=== PATIENT | male | born 1980 ===

== ENCOUNTER → 2022-12-12 12:31 | Outpatient (CLI) | payer OTHER, SELFPAY ==
--- NOTE | ~2022-12-12 | MR_ITS ---
MRI of the left ankle Clinical history: Pain Technique: Coronal proton-density and proton-density fat-sat images, axial proton-density and proton- density fat-sat images, and sagittal proton-density and proton-density fat-sat images were acquired. Findings: Syndesmotic ligaments are intact. Posterior talofibular ligament is intact. Anterior talofi bular ligament is somewhat thickened and hyperintense, with probable small chronic avulsion fracture at the tip of the lateral malleolus. Calcaneofibular ligament is also poorly delineated. Deltoid liga ment is intact. There is focal tendinosis of the distal tibial posterior tendon, which is thickened and hyperintense. There is minimal tenosynovitis of the proximal tibialis posterior tendon. There is mild tenosynoviti s of the peroneal tendon sheaths proximally. Anterior extensor tendons and Achilles tendon are intact . There is no osteochondral lesion of the talar dome. There is advanced degenerative change of the tars ometatarsal joints diffusely, with reactive marrow edema and some chondral cystic change. There is robert sceptibility artifact at the dorsal aspect of the region of the first TMT joint, which could indicate postoperative change. Visualized plantar fascia is intact. No soft tissue mass or fluid collection s een otherwise. Impression: Focal moderate tenosynovitis of the distal tibialis posterior tendon. Mild tenosynovitis of the tibialis posterior and peroneal tendon sheaths, as detailed above. 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 Correlate with any relevant history. Thinned hyperintense anterior talofibular ligament, with poor visualization of the calcaneofibular li gament, and suspected chronic small lateral malleolus avulsion fracture. Findings likely represent se quelae of remote lateral ankle injury. Reviewed, dictated and finalized at location . Impression: Focal moderate tenosynovitis of the distal tibialis posterior tendon. Mild tenosynovitis of the tibialis posterior and peroneal tendon sheaths, as de tailed above. 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 Correlate w ith any relevant history. Thinned hyperintense anterior talofibular ligament, with poor visualization of the calcaneofibular ligament, and suspected chronic small lateral malleolus avu lsion fracture. Findings likely represent sequelae of remote lateral ankle inju ry.
--- NOTE | ~2022-12-12 | MR_ITS ---
MRI of the right ankle Clinical history: Pain Technique: Coronal proton-density and proton-density fat-sat images, axial proton-density and proton- density fat-sat images, and sagittal proton-density and proton-density fat-sat images were acquired. Findings: Syndesmotic ligaments are intact. Anterior talofibular ligament is thickened with probable chronic avulsion fracture at the tip of the lateral malleolus. Calcaneofibular ligament appears intac t. Posterior talofibular ligament is intact. Deltoid ligament is intact. There is focal tendinosis of the distal tibialis posterior tendon. Peroneal tendons, anterior extenso r tendons, and Achilles tendon are intact. There is patchy mild to moderate chondromalacia the tibiotalar joint, with spurring at the anterior a nd posterior margins of the distal tibial plafond. There is a small tibiotalar joint effusion with lo ose body posterior to the distal tibia measuring 1 cm in diameter (sagittal image 8). There are also at least 3 additional loose bodies in the flexor hallucis longus tendon sheath more distally, nasal b one the calcaneocuboid joint, larger measuring 7 mm in diameter (coronal image 16, axial images 21-29 ). There is moderate degenerative change of the first tarsometatarsal joint. There is a lobulated gangli on cyst at the region of the dorsal aspect of the calcaneocuboid joint, measuring approximately 2.4 c m in maximum diameter (sagittal images 9-12). Plantar fascia is intact. No other soft tissue mass or fluid collection evident. 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 Associated 1 cm loose body posterior to the distal tibia, with at least 3 additional loose bodies in the more distal flexor hallucis longus tendon sheat h. Please see details above. Moderate tendinosis of the distal tibialis posterior tendon. Probable chronic posttraumatic changes involving the anterior talofibular ligament, presumably relate d to remote sprain/injury. 2.4 cm lobulated ganglion cyst at the region of the dorsal aspect of the calcaneocuboid joint. Moderate degenerative change of the first tarsometatarsal joint. Reviewed, dictated and finalized at location M. 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 Associated 1 cm loose body po sterior to the distal tibia, with at least 3 additional loose bodies in the mor e distal flexor hallucis longus tendon sheath. Please see details above. Moderate tendinosis of the distal tibialis posterior tendon. Probable chronic posttraumatic changes involving the anterior talofibular ligam ent, presumably related to remote sprain/injury. 2.4 cm lobulated ganglion cyst at the region of the dorsal aspect of the calcan eocuboid joint. Moderate degenerative change of the first tarsometatarsal joint.
== END ==
PROVIDERS: PCP Podiatrist Foot & Ankle Surgery; Visit Provider Podiatrist Foot & Ankle Surgery
DX: M19.071 Primary osteoarthritis, right ankle and foot (principal); M19.072 Primary osteoarthritis, left ankle and foot
CPT/HCPCS: 73721